=== PATIENT | male | born 1950 ===

== ENCOUNTER 2017-12-22 03:09 | Emergency (ER) | payer OTHER, BC ==
[2017-12-22 03:36] VITALS: TEMP 99
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
[2017-12-22 05:44] VITALS: BP 126/79; PULSE 79; RESP 18
[2017-12-22 05:50] VITALS: O2SAT 98
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
== END 2017-12-22 06:29 | disposition home or self-care (01) ==
LOC: H.ER 03:09
DX: M54.2 Cervicalgia (principal); M25.561 Pain in right knee; M25.562 Pain in left knee; V43.62XA Car passenger injured in collision with other type car in traffic accident, initial encounter; Y92.410 Unspecified street and highway as the place of occurrence of the external cause; I10 Essential (primary) hypertension